=== PATIENT | male | born 1990 | race Caucasian/White ===

== ENCOUNTER 2018-01-16 14:32 | Emergency (ER) | payer OTHER ==
[2018-01-16 15:09] VITALS: BP 139/70
--- NOTE | 2018-01-16 15:12 | UC ---
Elbow Pain - HPI Summary HPI Summary: last pm, pt was lifting a mat that weighs about 3#'s when he felt a sudden pop and felt pain in his lateral L elbow. - History of Current Complaint Stated Complaint: WC - LEFT ELBOW INJURY Time Seen by Provider: 01/16/18 15:04 Hx Obtained From: Patient Aggravating Factor(s): Other - Flexion at elbow Alleviating Factor(s): Other - bent at elbow and reting aginst his trunk Associated Signs And Symptoms: Positive: Negative - Allergies/Home Medications Allergies/Adverse Reactions: Allergies Allergy/AdvReac Type Severity Reaction Status Date / Time No Known Allergies Allergy Verified 01/16/18 15:09 Home Medications: Home Medications NK [No Home Medications Reported] 01/16/18 [History Confirmed 01/16/18] PMH/Surg Hx/FS Hx/Imm Hx Previously Healthy: Yes - Family History Known Family History: Positive: None - Social History Occupation: Employed Full-time Lives: With Family - Immunization History Vaccination Up to Date: Yes Review of Systems Constitutional: Negative Skin: Negative Eyes: Negative ENT: Negative Respiratory: Negative Cardiovascular: Negative Gastrointestinal: Negative Genitourinary: Negative Motor: Negative Neurovascular: Negative Musculoskeletal: Other: - pain L elbow Neurological: Negative Psychological: Negative Is Patient Immunocompromised?: No All Other Systems Reviewed And Are Negative: Yes Physical Exam Triage Information Reviewed: Yes Appearance: Well-Appearing Eyes: Positive: Conjunctiva Clear ENT: Positive: Normal ENT inspection Neck: Positive: Supple, Nontender, No Lymphadenopathy Respiratory: Positive: Lungs clear, Normal breath sounds Cardiovascular: Positive: RRR, No Murmur Abdomen Description: Positive: Nontender, No Organomegaly, Soft Bowel Sounds: Positive: Present Musculoskeletal: Positive: Other: - LUE=no gross defomrity, swelling or discoloration. point tender over lateral epicondyle at elbow. rest of arm is non tender with full s/v/m function. Pain worse with flexion and extension at elbow. Neurological: Positive: Alert Psychological: Positive: Age Appropriate Behavior Skin Exam: Normal Elbow Pain Course/Dx - Differential Dx/Diagnosis Differential Diagnosis/HQI/PQRI: Fracture (Closed), Joint Effusion, Sprain, Strain, Tendonitis Provider Diagnoses: Lateral epicondylitis L elbow. Strain L lateral elbow Discharge - Sign-Out/Discharge Documenting (check all that apply): Patient Departure All imaging exams completed and their final reports reviewed: Yes - Discharge Plan Condition: Stable Disposition: HOME Patient Education Materials: Tennis Elbow (ED), Muscle Strain (DC) Forms: *Work Release Referrals: Paulie Ko MD [Medical Doctor] - As Soon As Possible Additional Instructions: LATERAL EPICONDYLITIS LEFT ELBOW. STRAIN LATERAL LEFT ELBOW SLING FOR COMFORT - Billing Disposition and Condition Condition: STABLE Disposition: Home
--- NOTE | 2018-01-16 15:47 | RAD ---
Indication: Left elbow injury. 4 views left elbow demonstrates no fracture. No other bone or joint abnormality is noted. IMPRESSION: No fracture of left elbow is noted.
== END 2018-01-16 16:03 | disposition home or self-care (01) ==
LOC: UCCORT 14:32
DX: S46.812A Strain of other muscles, fascia and tendons at shoulder and upper arm level, left arm, initial encounter (principal); M77.12 Lateral epicondylitis, left elbow; X50.0XXA Overexertion from strenuous movement or load, initial encounter; Y92.9 Unspecified place or not applicable
CPT/HCPCS: 99212; G0463